=== PATIENT | female | born 1965 | race Caucasian/White ===

== ENCOUNTER → 2021-06-08 | Outpatient (CLI) | payer OTHER ==
--- NOTE | 2021-06-08 16:41 | RAD ---
EXAM: DUAL ENERGY X-RAY ABSORPTIOMETRY (DEXA). HISTORY: Breast cancer therapy. Osteoporosis screening. FINDINGS: The lowest measured T-score is -1.3 in the right femoral neck, based on a bone mineral dens ity of 0.788 g/cm^2. Refer to the worksheets for full detail. No comparison examinations are available. IMPRESSION: 1. Low bone mass. Bone mineral density yields a T-score between -1.0 and -2.5. Fracture risk is incre ased. 2. FRAX report: Not calculated. METHODOLOGY: Dual energy x-ray absorptiometry was performed to measure bone mineral density. The foll owing analysis is based on the 2019 Official Positions of the International Society for Clinical Dens itometry: Measurements of the hips and the average of L1-L4 are preferred. When the spine and/or hip cannot be feasibly measured or interpreted, or in the setting of hyperparathyroidism, distal radial bone minera l density may be measured. The lumbar spine T-score is based on the average bone mineral density of L1-L4. In the setting of art ifact or anatomic abnormality, some lumbar levels may be excluded, and the remaining levels used for calculation. A single lumbar level is not used for diagnosis, and if only a single level is available for assessment, another anatomic site will be used to assign a diagnosis. The hip T-score is based on the bone mineral density measurement of the femoral neck or total proxima l femur of either side, whichever is lowest. Bilateral mean values are not used for diagnosis. The forearm T-score is derived from 33% of the distal radius of the nondominant forearm. Electronically signed by: Jodee Jean MD (06/08/2021 4:39 PM) [id number]
== END ==
LOC: DXRAD 14:43
PROVIDERS: ATTEND Internal Medicine Hematology & Oncology
DX: M81.8 Other osteoporosis without current pathological fracture (principal); Z79.811 Long term (current) use of aromatase inhibitors
CPT/HCPCS: 77080